=== PATIENT | female | born 1990 | race Caucasian/White ===

== ENCOUNTER 2019-12-21 10:39 | Inpatient (IN) | payer OTHER ==
[~2019-12-21] VITALS: Ht 172.7 cm; Wt 74.0 kg
[2019-12-25] MEDS ORDERED: OXYTOCIN 30U/ 0.9% NaCL 500ML 500 ML IV ONE (11:13)
[2019-12-25 11:23] VITALS: BP 113/65
[2019-12-25] MEDS ORDERED: PREN-3 PO (11:29)
[2019-12-25] MEDS ORDERED: CALCIUM CARBONATE 500 MG TAB.CHEW PO PRN (11:30)
[2019-12-25] MEDS ORDERED: ONDANSETRON 2MG/ML, 2ML IVPush PRN (11:30)
[2019-12-25] MEDS ORDERED: FENTANYL PF 100 MCG/2ML IV PRN (11:30)
[2019-12-25] MEDS ORDERED: TERBUTALINE 1 MG/ML, 1ML SQ PRN (11:30)
[2019-12-25] MEDS ORDERED: TERBUTALINE 1 MG/ML, 1ML IVPush PRN (11:30)
[2019-12-25] MEDS: LACTATED RINGERS 1,000 ML IV SCH ×2 (11:37→21:02)
[2019-12-25] MEDS ORDERED: D5%-LACTATED RINGERS 1,000 ML IV SCH (12:00)
[2019-12-25] MEDS ORDERED: OXYTOCIN 30U/ 0.9% NaCL 500ML 500 ML ONE (12:06)
[2019-12-25] MEDS ORDERED: MISOPROSTOL 25 MCG TABLET ONE (12:06)
[2019-12-25] MEDS ORDERED: LIDOCAINE 1%, 20ML ONE ×2 (12:06→21:18)
[2019-12-25] MEDS ORDERED: NEWBORN KIT ONE (12:06)
[2019-12-25] MEDS ORDERED: MISOPROSTOL 200 MCG TABLET ONE (12:06)
[2019-12-25 12:26] LABS: BASOPHILS # (AUTO) 0.04 x10^3/uL (0-0.1); BASOPHILS % (AUTO) 0 % (0-1); EOSINOPHILS # (AUTO) 0.03 x10^3/uL (0-0.4); EOSINOPHILS % (AUTO) 0 % (1-7); LYMPHOCYTES # (AUTO) 1.52 x10^3/uL (1-3.4); LYMPHOCYTES % (AUTO) 15 % (22-44); MD NO; MEAN CORPUSCULAR HEMOGLOBIN 30.1 pg (27.0-34.8); MEAN CORPUSCULAR HGB CONC 33.4 g/dL (32.4-35.8); MEAN CORPUSCULAR VOLUME 90.2 fL (80-100); MEAN PLATELET VOLUME 8.1 fL (7.4-10.4); MONOCYTES # (AUTO) 0.54 x10^3/uL (0.2-0.8); MONOCYTES % (AUTO) 5 % (2-9); NEUTROPHILS # (AUTO) 8.17 x10^3/uL (1.8-6.8); NEUTROPHILS % (AUTO) 79 % (42-75); PLATELET COUNT 229 x10^3/uL (130-400); RED BLOOD COUNT 3.99 x10^6/uL (3.82-5.3); RED CELL DISTRIBUTION WIDTH 13.7 % (9.6-15.2)
[2019-12-25] MEDS ORDERED: MISOPROSTOL 25 MCG TABLET VG PRN (12:30)
[2019-12-25] MEDS ORDERED: OXYTOCIN 30U/ 0.9% NaCL 500ML 500 ML IV PRN (17:52)
[2019-12-25] MEDS ORDERED: FENTANYL/BUPIV./NS/PF 250 ML EPIDCONT SCH (18:43)
[2019-12-25] MEDS ORDERED: FENTANYL PF 100 MCG/2ML ONE ×2 (19:22→20:16)
[2019-12-25] MEDS: FENTANYL PF 100 MCG/2ML IVPush PRN ×2 (19:25→20:39)
[2019-12-25] MEDS ORDERED: FENTANYL/BUPIV./NS/PF 250 ML EPIDCONT ONE ×2 (21:09→21:18)
[2019-12-25] MEDS ORDERED: LIDOCAINE/PF 1%-EPI 1:200K, 30ML ONE (21:18)
[2019-12-25 23:23] LABS: AMPHETAMINE SCREEN, URINE Negative (Negative); BARBITURATE SCREEN, URINE Negative (Negative); BENZODIAZEPINE SCREEN, URINE Negative (Negative); CANNABINOID SCREEN, URINE Negative (Negative); COCAINE SCREEN, URINE Negative (Negative); METHADONE SCREEN, URINE Negative (Negative); OPIATE SCREEN, URINE Negative (Negative)
[2019-12-26] MEDS ORDERED: OXYTOCIN 30U/ 0.9% NaCL 500ML 500 ML ONE (00:54)
[2019-12-26] MEDS ORDERED: OXYTOCIN 30U/ 0.9% NaCL 500ML 500 ML IV SCH (02:56)
[2019-12-26] MEDS: OXYTOCIN 30U/ 0.9% NaCL 500ML 500 ML IV SCH ×4 (02:56→07:14)
[2019-12-26] MEDS ORDERED: ACETAMINOPHEN 325 MG TABLET PO PRN ×2 (03:00)
[2019-12-26] MEDS ORDERED: SIMETHICONE 80 MG CHEW TAB PO PRN (03:00)
[2019-12-26] MEDS ORDERED: BISACODYL 10 MG SUPP PR PRN (03:00)
[2019-12-26] MEDS ORDERED: ONDANSETRON 2MG/ML, 2ML IV PRN (03:00)
[2019-12-26] MEDS ORDERED: HYDROcodone/APAP 5/325 TABLET PO PRN ×2 (03:00)
[2019-12-26] MEDS ORDERED: CALCIUM CARBONATE 500 MG TAB.CHEW PO PRN (03:00)
[2019-12-26] MEDS ORDERED: MISOPROSTOL 200 MCG TABLET PR PRN (03:00)
[2019-12-26 03:10] VITALS: BP 105/64
[2019-12-26] MEDS: IBUPROFEN 600 MG TABLET PO PRN (03:35)
[2019-12-26 08:37] LABS: MEAN CORPUSCULAR HEMOGLOBIN 30.2 pg (27.0-34.8); MEAN CORPUSCULAR HGB CONC 33.2 g/dL (32.4-35.8); MEAN CORPUSCULAR VOLUME 90.9 fL (80-100); MEAN PLATELET VOLUME 7.5 fL (7.4-10.4); PLATELET COUNT 191 x10^3/uL (130-400); RED BLOOD COUNT 3.71 x10^6/uL (3.82-5.3); RED CELL DISTRIBUTION WIDTH 13.2 % (9.6-15.2)
[2019-12-26 08:50] VITALS: BP 108/71
[2019-12-26 09:10] LABS: MD YES
[2019-12-26 09:11] LABS: <PLATELET ESTIMATE> ADEQUATE; <PLT MORPHOLOGY> NORMAL PLT MORPH; BANDS%(MANUAL) 8 % (0-7); BASOS% (MANUAL) 1 % (0-1); LYMPHS% (MANUAL) 7 % (22-44); METAMYELOCYTES% (MANUAL) 1 % (0-1); MONOS% (MANUAL) 2 % (2-9); SEGS% (MANUAL) 81 % (42-75)
[2019-12-26 09:12] LABS: <RBC MORPHOLOGY> NORMAL
[2019-12-26] MEDS: DOCUSATE 100 MG CAPSULE PO PRN (09:46)
[2019-12-26] MEDS: PRENATAL VIT/IRON/FA 1 EACH TABLET PO SCH (09:46)
[2019-12-26 12:00] VITALS: BP 98/63
[2019-12-26 16:00] VITALS: BP 98/63
[2019-12-26 20:00] VITALS: BP 102/65
[2019-12-27] MEDS: IBUPROFEN 600 MG TABLET PO PRN ×2 (01:06→08:00)
[2019-12-27] MEDS: DOCUSATE 100 MG CAPSULE PO PRN (08:00)
[2019-12-27] MEDS: PRENATAL VIT/IRON/FA 1 EACH TABLET PO SCH (08:00)
[2019-12-27 08:45] VITALS: BP 99/64
[2019-12-27] MEDS ORDERED: IBUP-1222 PO (12:35)
== END 2019-12-27 14:40 | disposition home or self-care (01) | DRG 807 ==
LOC: EDSTATUS 10:42 → LDIP 12-25 11:08 → 2NW 12-26 02:52
PROVIDERS: ADMIT Obstetrics & Gynecology; ATTEND Obstetrics & Gynecology
PROC: 10H07YZ Insertion of Other Device into Products of Conception, Via Natural or Artificial Opening (ICD-10-PCS; 2019-12-25)
PROC: 10D07Z6 Extraction of Products of Conception, Vacuum, Via Natural or Artificial Opening (ICD-10-PCS; principal; 2019-12-26)
PROC: 0HQ9XZZ Repair Perineum Skin, External Approach (ICD-10-PCS; 2019-12-26)
PROC: 3E0R3BZ Introduction of Anesthetic Agent into Spinal Canal, Percutaneous Approach (ICD-10-PCS; 2019-12-26)
PROC: 00HU33Z Insertion of Infusion Device into Spinal Canal, Percutaneous Approach (ICD-10-PCS; 2019-12-26)
PROC: 10H073Z Insertion of Monitoring Electrode into Products of Conception, Via Natural or Artificial Opening (ICD-10-PCS; 2019-12-26)
DX: O48.0 Post-term pregnancy (principal); Z37.0 Single live birth; O76 Abnormality in fetal heart rate and rhythm complicating labor and delivery; O70.0 First degree perineal laceration during delivery; Z3A.40 40 weeks gestation of pregnancy; Z03.818 Encounter for observation for suspected exposure to other biological agents ruled out
CPT/HCPCS: 36415; J3490; 80307; 82803; 85025; 86592; 86850; 86900; G0378; J3010; J2590; J7120; U0001-CS